=== PATIENT | male | born 1960 | race African-American/Black ===

== ENCOUNTER 2017-10-24 06:07 | Day surgery (SDC) | payer OTHER ==
[2017-10-16 12:31] VITALS: BMI 26.4
[2017-10-24] MEDS ORDERED: PROPOFOL 20 ML ONE (07:29)
[2017-10-24] MEDS ORDERED: LIDOCAINE HCL 2% (20ML MULTI-DOSE VIAL) NR ONE (07:29)
[2017-10-24] MEDS ORDERED: MIDAZOLAM HCL 2 MG/2 ML SINGLE DOSE VIAL ONE (07:30)
[2017-10-24] MEDS ORDERED: LIDOCAINE HCL/PF 2% SDV 5ML VIAL ONE (07:31)
[2017-10-24] MEDS ORDERED: BUPIVACAINE HCL/PF 2.5 MG/ML - 30 ML VIAL IJ ONE (07:34)
[2017-10-24] MEDS ORDERED: SCOPOLAMINE HYDROBROMIDE 1 PATCH PATCH.TD72 ONE (07:39)
[2017-10-24] MEDS ORDERED: DEXAMETHASONE SOD PHOSPHATE 4 MG/1 ML VIAL ONE (07:59)
[2017-10-24] MEDS ORDERED: ONDANSETRON 4 MG/2 ML VIAL ONE (07:59)
[2017-10-24] MEDS ORDERED: BUPIVACAINE HCL/PF 0.25% (2.5MG/ML) 10 ML VIAL IJ ONE (08:15)
[2017-10-24] MEDS ORDERED: KETOROLAC TROMETHAMINE 30 MG/1 ML VIAL ONE (08:15)
[2017-10-24] MEDS ORDERED: ONDANSETRON 4 MG/2 ML VIAL IVPUSH PRN (08:32)
[2017-10-24] MEDS ORDERED: PROMETHAZINE HCL 25 MG/1 ML VIAL IVPUSH PRN (08:32)
[2017-10-24] MEDS ORDERED: LACTATED RINGERS SOLUTION 1,000 ML IV SCH (08:45)
[2017-10-24 09:45] VITALS: TEMP 98.2
[2017-10-24 10:17] VITALS: BP 125/78; PULSE 66
--- NOTE | 2017-10-27 12:10 | OP ---
DATE OF OPERATION: 10/24/2017 PREOPERATIVE DIAGNOSIS: Left carpal tunnel syndrome. POSTOPERATIVE DIAGNOSIS: Left carpal tunnel syndrome. OPERATIVE PROCEDURE: Left endoscopic carpal tunnel release. SURGEON: Luis Manuel Buckner MD ANESTHESIA: General. COMPLICATIONS: None. ESTIMATED BLOOD LOSS: Minimal. INDICATION FOR PROCEDURE: The patient is a 57-year-old male with the above finding, indicated for operative treatment. Risks, benefits, and alternatives were discussed with the patient at length. Proper informed consent was obtained. PROCEDURE: After proper identification of the patient and the correct operative site, the patient was brought to the operating room and placed supine on the operative table. Prominences were well padded. General anesthesia provided by the anesthesiologist adequate for the procedure. Left upper extremity was prepped and draped in the usual sterile fashion. A well-padded tourniquet was placed as well as a sterile prep. An Esmarch bandage was used to exsanguinate the left upper extremity. The tourniquet was inflated to 250 mmHg. A transverse incision was made over the proximal wrist crease. Incision was taken sharply through the skin with blunt and sharp dissection through the subcutaneous tissues, and a full-thickness flap of the antebrachial fascia was developed, and the micro-endoscopic carpal tunnel release system was used. [place] elevator was used to free any soft tissue off the undersurface of the transcarpal ligament. Hamate-finder dilators were used to prepare the canal. The carpal tunnel release system was then inserted to the distal edge of the transcarpal ligament which was positively identified. At all times throughout the procedure, excellent visualization was achieved, and at no time was any soft tissue allowed to interpose between the blade and the transcarpal ligament. The blade was then deployed, and the transcarpal ligament was divided. The distal 4 cm of the antebrachial fascia were divided under direct visualization. This provided complete release of the median nerve at the wrist. Wound was irrigated copiously with saline and repaired with a 4-0 Monocryl suture. Steri-Strips and sterile dressings were applied. The patient was reversed from anesthesia and brought to Recovery in stable condition. He tolerated the procedure well. Lulu [id number]
== END 2017-10-24 10:19 | disposition home or self-care (01) ==
LOC: FASU 06:07
PROVIDERS: ATTEND Orthopaedic Surgery Hand Surgery
PROC: 01N50ZZ Release Median Nerve, Open Approach (ICD-10-PCS; principal; 2017-10-24 08:08)
DX: G56.02 Carpal tunnel syndrome, left upper limb (principal)

== ENCOUNTER 2019-09-04 06:59 | Day surgery (SDC) | payer OTHER ==
[2019-08-28 12:18] VITALS: BMI 27.9
[~2019-09-04 06:59] MED LIST: LIDOCAINE HCL 2% (50ML VIAL) INF ONE
[2019-09-04] MEDS ORDERED: PROPOFOL 20 ML ONE (07:51)
[2019-09-04] MEDS ORDERED: MIDAZOLAM HCL 2 MG/2 ML SINGLE DOSE VIAL ONE (07:51)
[2019-09-04] MEDS ORDERED: LIDOCAINE HCL/PF 2% SDV 5ML VIAL ONE (07:52)
[2019-09-04] MEDS ORDERED: DEXAMETHASONE SOD PHOSPHATE 4 MG/1 ML VIAL ONE (07:52)
[2019-09-04] MEDS ORDERED: KETOROLAC TROMETHAMINE 30 MG/1 ML VIAL ONE (07:52)
[2019-09-04] MEDS ORDERED: ONDANSETRON 4 MG/2 ML VIAL ONE (07:52)
[2019-09-04 09:09] VITALS: TEMP 98.1
[2019-09-04 09:57] VITALS: BP 114/74; PULSE 78
--- NOTE | 2019-09-05 18:58 | OP ---
DATE OF OPERATION: 09/04/2019 PREOPERATIVE DIAGNOSIS: Left thumb trigger finger. POSTOPERATIVE DIAGNOSIS: Left thumb trigger finger. OPERATIVE PROCEDURE: Left thumb trigger finger release. SURGEON: Luis Manuel Melendez MD ANESTHESIA: Local with sedation. COMPLICATIONS: None. ESTIMATED BLOOD LOSS: Minimal. INDICATIONS FOR PROCEDURE: The patient is a 58-year-old male with the above finding, indicated for operative treatment. Risks, benefits and alternatives were discussed with the patient at length. Proper informed consent was obtained. PROCEDURE: After proper identification of patient and the correct operative site, patient was brought to the operating room and placed supine on the operating table. All prominences were well padded. Sedation and local anesthesia were given. Left upper extremity was prepped and draped in the usual sterile fashion. A well-padded tourniquet was placed over the sterile prep. Esmarch bandage to exsanguinate the left upper extremity. Transverse incision was made over the A1 chantal to the thumb. Incision was taken sharply through the skin. Blunt dissection was performed through the subcutaneous tissues. Neurovascular structures were carefully protected. A1 chantal was identified and divided longitudinally. Patient was asked to flex and extend his thumb and no further triggering occurred. Wound was repaired with 5-0 fast-absorb and plain gut suture. Sterile dressings were applied. Patient was brought to the recovery room in stable condition. He tolerated the procedure well. LUIS MANUEL MELENDEZ M.D. [id number]
== END 2019-09-04 09:59 | disposition home or self-care (01) ==
LOC: FASU 06:59
PROVIDERS: ATTEND Orthopaedic Surgery Hand Surgery
PROC: 0LN80ZZ Release Left Hand Tendon, Open Approach (ICD-10-PCS; principal; 2019-09-04 08:30)
DX: M65.312 Trigger thumb, left thumb (principal)

== ENCOUNTER 2019-09-24 10:34 | Day surgery (SDC) | payer OTHER ==
[2019-09-18 16:46] VITALS: BMI 27.9
[~2019-09-24 10:34] MED LIST changes: +LACTATED RINGERS SOLUTION 1,000 ML IV SCH; -LIDOCAINE HCL 2% (50ML VIAL) INF ONE; +ONDANSETRON 4 MG/2 ML VIAL IVPUSH PRN; +PROMETHAZINE HCL 25 MG/1 ML VIAL IVPUSH PRN; +oxyCODONE HCL 5 MG TABLET PO PRN
[2019-09-24] MEDS ORDERED: PROPOFOL 20 ML ONE ×3 (11:31→11:40)
[2019-09-24] MEDS ORDERED: MIDAZOLAM HCL 2 MG/2 ML SINGLE DOSE VIAL ONE (11:31)
[2019-09-24] MEDS ORDERED: SUCCINYLCHOLINE CHLORIDE 200 MG/10 ML SYRINGE ONE (11:39)
[2019-09-24] MEDS ORDERED: SCOPOLAMINE HYDROBROMIDE 1 PATCH PATCH.TD72 ONE (11:48)
[2019-09-24] MEDS ORDERED: GUM MASTIC/STORAX/MSAL/ALCOHOL 1 DRP DROPSBTL MC ONE (11:49)
[2019-09-24] MEDS ORDERED: BUPIVACAINE HCL/PF 0.5% (5MG/ML) 10 ML VIAL ONE (12:08)
[2019-09-24] MEDS ORDERED: BUPIVACAINE HCL/PF 0.5% (5MG/ML) 10 ML VIAL IJ ONE (12:10)
[2019-09-24 13:30] VITALS: BP 121/65; PULSE 62; TEMP 97.9
--- NOTE | 2019-09-24 17:34 | OP ---
DATE OF OPERATION: 09/24/2019 PREOPERATIVE DIAGNOSIS: Right carpal tunnel syndrome. POSTOPERATIVE DIAGNOSIS: Right carpal tunnel syndrome. OPERATIVE PROCEDURE: Right endoscopic carpal tunnel release. SURGEON: Luis Manuel Melendez MD DEPUTY JUVENILE OFFICER: ERIK Worley ANESTHESIA: General. COMPLICATIONS: None. ESTIMATED BLOOD LOSS: Minimal. INDICATIONS FOR PROCEDURE: The patient is a 58-year-old male with the above finding indicated for operative treatment. Risks, benefits, alternatives were discussed with the patient at length. Proper informed consent was obtained. DESCRIPTION OF PROCEDURE: After proper identification of patient and correct operative site, patient was brought to the operating room and placed supine on the table, prominences well padded. General anesthesia provided. Right upper extremity prepped and draped in usual sterile fashion. Well-padded tourniquet was placed with a sterile prep. Esmarch bandage used to exsanguinate right upper extremity. Tourniquet was inflated to 250 mmHg. Superficial landmarks were drawn on the skin. Transverse incision was made over the proximal crease ulnar to the palmaris longus tendon. Incision was taken sharply through the skin with blunt dissection to the subcutaneous tissues. Antebrachial fascia was divided, and the carpal canal was entered. Elevator was used to free soft tissue off the undersurface of the transcarpal ligament. Hamate finder dilator was used to prepare the canal, and the Micro-Aire endoscopic carpal tunnel release system was used to release the carpal canal. This was done by inserting the apparatus through the distal edge of the transcarpal ligament confirmed palpably as well as visually. At all times throughout the procedure, excellent visualization was achieved, and at no time was any soft tissue allowed to interpose between the blade and the undersurface of the transcarpal ligament. The blade was then deployed, and the transcarpal ligament was divided. Using a direct mini open approach, the distal 4 cm of antebrachial fascia were also divided. This provided complete release of the median nerve at the wrist. The wound was irrigated and repaired with 5-0 Monocryl suture. Steri-Strips and sterile dressings were applied. Patient was reversed from anesthesia and brought to recovery room in stable condition. Kenneth Lagunas, the per diem physical therapist assistant, was integral throughout the procedure. The procedure could not have been performed without a skilled operative per diem physical therapist assistant LUIS MANUEL MELENDEZ M.D. [id number]
== END 2019-09-24 13:39 | disposition home or self-care (01) ==
LOC: FASU 10:34
PROVIDERS: ATTEND Orthopaedic Surgery Hand Surgery
PROC: 01N54ZZ Release Median Nerve, Percutaneous Endoscopic Approach (ICD-10-PCS; principal; 2019-09-24 11:30)
DX: G56.01 Carpal tunnel syndrome, right upper limb (principal)
CPT/HCPCS: 94760